=== PATIENT | male | born 1975 | race African-American/Black ===

== ENCOUNTER 2017-11-27 13:01 | Inpatient (IN) ==
[2017-11-27] MEDS ORDERED: ACETAMINOPHEN 325 MG TABLET PO PRN (14:16)
[2017-11-27] MEDS ORDERED: DOCUSATE SODIUM 100 MG CAPSULE PO PRN (14:16)
[2017-11-27] MEDS ORDERED: ZALEPLON 5 MG CAPSULE PO PRN (14:16)
[2017-11-27] MEDS ORDERED: MAGNESIUM SULF RIDER 2 GM in PREMIX 1 EACH IV PRN (14:16)
[2017-11-27] MEDS ORDERED: ONDANSETRON 4 MG/2 ML VIAL IV PRN (14:16)
[2017-11-27] MEDS ORDERED: MAGNESIUM SULF RIDER 4 GM in PREMIX 1 EACH IV PRN (14:16)
[2017-11-27] MEDS ORDERED: diphenhydrAMINE CAP 25 MG CAPSULE PO PRN (17:32)
[2017-11-27] MEDS: ENOXAPARIN 40 MG/0.4 ML SYRINGE SUBCUT SCH (20:59)
[2017-11-28 04:59] LABS: Basophils % 0.4 % (0.0-0.8); Eosinophils % 0.6 % (0.00-10.9); Hematocrit 47.4 VOL% (42.0-52.0); Hemoglobin 15.6 GM/DL (14.0-18.0); Immature Granulocytes % 0.2 %; Immature Granulocytes Absolute 0.01 #; Lymphocytes # 2.2 10*3/uL (1.4-4.0); Lymphocytes % 43.7 % (21.2-54.2); Mean Corpuscular HGB Conc 32.9 GM/DL (32-36); Mean Corpuscular Hemoglobin 28 PG (27-34); Mean Corpuscular Volume 85.6 FL (87-102); Mean Platelet Volume 10.3 FL (9.6-12.0); Monocytes # 0.4 10*3/uL (0.11-0.8); Monocytes % 7.4 % (1.7-12.7); Neutrophils # 2.5 10*3/uL (1.4-7.4); Neutrophils % 47.7 % (38.7-73.9); Platelet Count 199 T/CUMM (130-400); Red Blood Count 5.54 MC/CUMM (3.8-5.5); Red Cell Distribution Width 16.5 % (9.3-17.3); White Blood Count 5.1 T/CUMM (4-12)
[2017-11-28 05:16] LABS: Calcium 8.7 MG/DL (8.5-10.1); Osmolality,Calculated 279.3 MOS/KG (273-304); Potassium 4.1 MMOL/L (3.5-5.1)
[2017-11-28 05:23] LABS: Risk Ratio 5.33; VLDL CHOLESTEROL 25.2 MG/DL
[2017-11-28] MEDS ORDERED: ceFAZolin 1,000 MG in SYRINGE 1 EACH IV ONE (06:00)
[2017-11-28] MEDS ORDERED: ceFAZolin 1,000 MG VIAL IRRIG ONE (06:00)
[2017-11-28] MEDS ORDERED: ceFAZolin 1,000 MG VIAL ONE (08:25)
[2017-11-28] MEDS ORDERED: LIDOCAINE 1% 20 ML VIAL ONE (08:25)
[2017-11-28] MEDS ORDERED: HEPARIN/NACL 0.9% 2 UNITS/ML 500 ML IV ONE (08:26)
[2017-11-28] MEDS ORDERED: FAMOTIDINE 20 MG/2 ML VIAL IV ONE (08:44)
[2017-11-28] MEDS ORDERED: METOPROLOL SUCCINATE XL 100 MG TABLET PO SCH (09:00)
[2017-11-28] MEDS ORDERED: TISSUE ADHESIVE 1 EACH APPLICATOR TOP ONE (09:41)
[2017-11-28] MEDS ORDERED: MIDAZOLAM 2 MG/2 ML VIAL ONE (10:38)
[2017-11-28] MEDS ORDERED: PROPOFOL 200 MG/20 ML VIAL IV ONE (10:38)
[2017-11-28] MEDS ORDERED: SEVOFLURANE 1 UNIT/15 MINUTE INH ONE (10:38)
[2017-11-28] MEDS ORDERED: ONDANSETRON 4 MG/2 ML VIAL ONE (10:39)
[2017-11-28] MEDS ORDERED: METOCLOPRAMIDE 10 MG/2 ML VIAL ONE (10:39)
[2017-11-28] MEDS ORDERED: LACTATED RINGERS 1,000 ML IV ONE (10:39)
[2017-11-28] MEDS ORDERED: ETOMIDATE 40 MG/20 ML VIAL IV ONE (10:39)
[2017-11-28] MEDS ORDERED: fentaNYL 100 MCG/2 ML VIAL ONE (10:39)
[2017-11-28] MEDS: METOPROLOL SUCCINATE XL 100 MG TABLET PO SCH ×2 (10:57→21:29)
[2017-11-28] MEDS: ceFAZolin 1,000 MG in SYRINGE 1 EACH IV SCH ×2 (16:21→23:15)
[2017-11-28] MEDS: ENOXAPARIN 40 MG/0.4 ML SYRINGE SUBCUT SCH (21:29)
[2017-11-29 05:22] LABS: Basophils % 0.5 % (0.0-0.8); Eosinophils % 0.3 % (0.00-10.9); Hematocrit 47.7 VOL% (42.0-52.0); Hemoglobin 15.9 GM/DL (14.0-18.0); Immature Granulocytes % 0.2 %; Immature Granulocytes Absolute 0.01 #; Lymphocytes # 2.1 10*3/uL (1.4-4.0); Lymphocytes % 36.2 % (21.2-54.2); Mean Corpuscular HGB Conc 33.3 GM/DL (32-36); Mean Corpuscular Hemoglobin 28 PG (27-34); Mean Corpuscular Volume 83.1 FL (87-102); Mean Platelet Volume 10.6 FL (9.6-12.0); Monocytes # 0.5 10*3/uL (0.11-0.8); Monocytes % 7.8 % (1.7-12.7); Neutrophils # 3.2 10*3/uL (1.4-7.4); Platelet Count 201 T/CUMM (130-400); Red Blood Count 5.74 MC/CUMM (3.8-5.5); Red Cell Distribution Width 16.9 % (9.3-17.3); White Blood Count 5.9 T/CUMM (4-12)
[2017-11-29 05:46] LABS: Calcium 8.5 MG/DL (8.5-10.1); Osmolality,Calculated 279.3 MOS/KG (273-304); Potassium 3.9 MMOL/L (3.5-5.1)
[2017-11-29 07:38] VITALS: BP 130/76
[2017-11-29] MEDS: METOPROLOL SUCCINATE XL 100 MG TABLET PO SCH (09:50)
== END 2017-11-29 10:42 | disposition home or self-care (01) | DRG 227 ==
LOC: N.TELEN 13:01
PROVIDERS: ADMIT Internal Medicine Clinical Cardiac Electrophysiology; ATTEND Internal Medicine Clinical Cardiac Electrophysiology
PROC: CLDCICD (2017-11-28 11:15)

== ENCOUNTER 2019-06-13 20:29 | Observation (INO) ==
[2019-06-13 21:01] LABS: Basophils % 0.6 % (0.0-0.8); Eosinophils % 0.2 % (0.00-10.9); Hematocrit 54.9 VOL% (42.0-52.0); Hemoglobin 17.9 GM/DL (14.0-18.0); Immature Granulocytes % 0.2 %; Immature Granulocytes Absolute 0.01 #; Lymphocytes # 1.5 10*3/uL (1.4-4.0); Lymphocytes % 29.5 % (21.2-54.2); Mean Corpuscular HGB Conc 32.6 GM/DL (32-36); Mean Corpuscular Volume 87.8 FL (87-102); Mean Platelet Volume 10.1 FL (9.6-12.0); Monocytes % 8.4 % (1.7-12.7); Neutrophils % 61.1 % (38.7-73.9); Platelet Count 219 T/CUMM (130-400); Red Blood Count 6.25 MC/CUMM (3.8-5.5); Red Cell Distribution Width 18.2 % (9.3-17.3)
[2019-06-13 21:09] LABS: PT Patient Result 10.8 SECS (9.6-12.2)
[2019-06-13 21:37] LABS: Alanine Aminotransferase 36 U/L (16-61); Alkaline Phosphatase 92 U/L (45-117); Aspartate Amino Transferase 28 U/L (0-37); Blood Urea Nitrogen 14 MG/DL (7-18); Calcium 8.9 MG/DL (8.5-10.1); Estimated Glom Filtration Rate 117 ML/MIN; Glucose 100 MG/DL (74-106); Osmolality,Calculated 281.3 MOS/KG (273-304); Total Protein 7.9 G/DL (6.4-8.3)
[2019-06-13 21:38] LABS: Troponin I 0.055 NG/ML (0.00-0.045)
[2019-06-13] MEDS ORDERED: ALUM/MAG/SIMETH/LIDO VISC 1:1 30 ML BOTTLE PO STA (21:59)
[2019-06-13] MEDS ORDERED: ASPIRIN 325 MG TABLET PO STA (21:59)
[2019-06-13] MEDS ORDERED: MORPHINE 4 MG/1 ML VIAL IV STA (21:59)
[2019-06-13] MEDS ORDERED: ONDANSETRON 4 MG/2 ML VIAL IV STA (21:59)
[2019-06-13] MEDS ORDERED: NITROGLYCERIN 2% OINT 1 INCH/GM PACK TOP STA (21:59)
[2019-06-13] MEDS ORDERED: ACETAMINOPHEN 325 MG TABLET PO PRN (23:40)
[2019-06-13] MEDS ORDERED: ONDANSETRON 4 MG/2 ML VIAL IV PRN (23:40)
[2019-06-13] MEDS ORDERED: MORPHINE 4 MG/1 ML VIAL IV PRN (23:40)
[2019-06-14] MEDS: ENOXAPARIN 40 MG/0.4 ML SYRINGE SUBCUT SCH ×2 (02:29→20:17)
[2019-06-14] MEDS: NITROGLYCERIN 2% OINT 1 INCH/GM PACK TOP SCH ×2 (02:38→06:45)
[2019-06-14] MEDS ORDERED: SODIUM CHLORIDE 0.9% 1,000 ML IV SCH (08:00)
[2019-06-14] MEDS ORDERED: METOPROLOL SUCCINATE XL 100 MG TABLET PO SCH (09:00)
[2019-06-14] MEDS: PANTOPRAZOLE 40 MG TABLET PO SCH (09:42)
[2019-06-14] MEDS: POTASSIUM CHLORIDE 20 MEQ TABLET PO PRN ×3 (10:20→15:30)
[2019-06-14 19:51] LABS: Apearance,Urine Slightly Hazy (Clear); Bilirubin,Urine Negative (Negative); Blood, Urine Negative (Negative); Glucose,Urine (UA) Negative (Negative); Ketones,Urine Negative (Negative); Mucus,Urine Many /LPF (Occasional); Nitrite,Urine Negative (Negative); Protein,Urine Negative; RBC,Urine 2 /HPF (0-4); Urine Color Amber (Yellow)
[2019-06-14] MEDS: METOPROLOL SUCCINATE XL 100 MG TABLET PO SCH (20:17)
[2019-06-15 06:21] LABS: Basophils % 0.5 % (0.0-0.8); Hematocrit 51.5 VOL% (42.0-52.0); Hemoglobin 16.4 GM/DL (14.0-18.0); Immature Granulocytes % 0.2 %; Immature Granulocytes Absolute 0.01 #; Lymphocytes # 1.3 10*3/uL (1.4-4.0); Lymphocytes % 32.9 % (21.2-54.2); Mean Corpuscular HGB Conc 31.8 GM/DL (32-36); Mean Corpuscular Volume 89.1 FL (87-102); Mean Platelet Volume 10.4 FL (9.6-12.0); Monocytes % 6.6 % (1.7-12.7); Neutrophils % 58.8 % (38.7-73.9); Platelet Count 210 T/CUMM (130-400); Red Blood Count 5.78 MC/CUMM (3.8-5.5); White Blood Count 4.1 T/CUMM (4-12)
[2019-06-15 06:35] LABS: Calcium 8.3 MG/DL (8.5-10.1); Osmolality,Calculated 277.5 MOS/KG (273-304)
[2019-06-15] MEDS: PANTOPRAZOLE 40 MG TABLET PO SCH (08:23)
[2019-06-15] MEDS: METOPROLOL SUCCINATE XL 100 MG TABLET PO SCH (08:23)
[2019-06-15 08:30] VITALS: BP 120/59
== END 2019-06-15 11:45 | disposition home or self-care (01) ==
LOC: N.ED 20:29 → N.EDINP 20:29 → SUPCPDRO 23:40 → N.TELES 06-14 01:03
PROVIDERS: ADMIT Internal Medicine; ATTEND Internal Medicine